=== PATIENT | male | born 1960 | race Caucasian/White ===

== ENCOUNTER 2016-10-20 20:42 | Emergency (ER) | payer BC ==
[~2016-10-20] VITALS: Ht 182.9 cm; Wt 93.0 kg
[2016-10-20 20:49] VITALS: BP 153/101
[2016-10-20] MEDS ORDERED: DIPHTH,PERTUSS(ACELL),TET TOX 0.5 ML DISP.SYRIN. VAX IM ONE (21:30)
[2016-10-20] MEDS ORDERED: LIDOCAINE 1% / SOD BICARB 8.4% 20 ML VIAL. IJ ONE (21:30)
--- NOTE | 2016-10-20 21:34 | PHYS DOC ---
Past Medical History Past Medical History: High Cholesterol, Hypertension Past Surgical History: No Surgical History Alcohol Use: Occasionally Drug Use: None Adult General Chief Complaint Chief Complaint: LACERATION/AVULSION HPI HPI Patient is a 56 year old male who presents emergency Department with a complaint of a laceration to his right hand that occurred within the hour prior to arrival. Patient states he was reaching underneath a cabinet and grabbed a tile that he did not know was broken/cracked. Patient does not remember exactly when he received his last tetanus shot. He states it was within the past 10 years but not sure whether it had been in the past 5 years. He denies any additional injuries or concerns at this time. Of incidental note, patient is to drinking alcohol prior to coming in. Review of Systems Review of Systems Constitutional: Denies fever or chills [] Eyes: Denies change in visual acuity, redness, or eye pain [] HENT: Denies nasal congestion or sore throat [] Respiratory: Denies cough or shortness of breath [] Cardiovascular: No additional information not addressed in HPI [] GI: Denies abdominal pain, nausea, vomiting, bloody stools or diarrhea [] : Denies dysuria or hematuria [] Musculoskeletal: Denies back pain or joint pain [] Integument: Denies rash or skin lesions [] Neurologic: Denies headache, focal weakness or sensory changes [] Endocrine: Denies polyuria or polydipsia [] Current Medications Current Medications Current Medications Medications (Trade) Dose Ordered Sig/Day Start Time Stop Time Status Last Admin Dose Admin Diphtheria/ Tetanus/Acell Pertussis (Boostrix) 0.5 ml ONCE ONCE 10/20/16 21:30 10/20/16 21:31 DC Lidocaine/Sodium Bicarbonate (Buffered Lidocaine 1%) 20 ml 1X ONCE 10/20/16 21:30 10/20/16 21:31 DC 10/20/16 21:30 20 ML Allergies Allergies Allergies Coded Allergies Type Severity Reaction Last Updated Verified No Known Drug Allergies 10/20/16 No Physical Exam Physical Exam Constitutional: Well developed, well nourished, no acute distress, non-toxic appearance. [] HENT: Normocephalic, atraumatic, bilateral external ears normal, oropharynx moist, no oral exudates, nose normal. [] Eyes: PERRLA, EOMI, conjunctiva normal, no discharge. [] Neck: Normal range of motion, no tenderness, supple, no stridor. [] Cardiovascular:Heart rate regular rhythm, no murmur [] Lungs & Thorax: Bilateral breath sounds clear to auscultation [] Abdomen: Bowel sounds normal, soft, no tenderness, no masses, no pulsatile masses. [] Skin: Warm, dry, no erythema, no rash. [] Back: No tenderness, no CVA tenderness. [] Extremities: Approximate 3.5 cm laceration that extends into the subcutaneous tissue in the right thenar region. This does not extend deep into the tendon structures of the palm. Patient is able to flex and extend all 5 fingers at the MCP J, PIPJ and DIPJ. Fingers are neurovascularly intact with capillary refill less than 2 seconds. Neurologic: Alert and oriented X 3, normal motor function, normal sensory function, no focal deficits noted. [] Psychologic: Affect normal, judgement normal, mood normal. [] Current Patient Data Vital Signs Vital Signs Date Time Temp Pulse Resp B/P Pulse Ox O2 Delivery O2 Flow Rate FiO2 10/20/16 20:49 97.6 81 20 96 Room Air 97.6 EKG EKG [] Radiology/Procedures Radiology/Procedures Procedure note: 3.5 similar laceration to the thenar region of patient's right hand was anesthetized with buffered 1% lidocaine. Wound was explored for foreign bodies. No foreign bodies were found. Wound was cleansed with Betadine solution and rinsed with copious amounts saline. Wound margins were approximated utilizing 4-O nylon in a simple interrupted fashion of a single- layer closure for total of 7 stitches. Patient tolerated the procedure well. Patient declined tetanus shot. Course & Med Decision Making Course & Med Decision Making Patient's been somewhat noncompliant with the nurses and requested that he not drink any water so they can check his temperature. He is also voiced some dissatisfaction having to wait as there were 2 procedures performed before him as well. Patient takes a somewhat argumentative approach when dealing with the staff, but keeps it in a pleasant demeanor. Dragon Disclaimer Dragon Disclaimer This electronic medical record was generated, in whole or in part, using a voice recognition dictation system. Departure Departure Impression: Primary Impression: Laceration Disposition: 01 HOME, SELF-CARE Condition: IMPROVED Referrals: RAJ GALICIA (PCP) Patient Instructions: Diphtheria Toxoid; Tetanus Toxoid Adsorbed, DT, Td, Laceration Care, Adult, [id number] Additional Instructions: 1. Stitches need to be removed in 10 days. 2. Review the discharge instructions for self-care and reasons to return the emergency department. 3. Contact your primary care doctor's office in the morning to schedule follow- up appointment for wound check and stitch removal. ERON DOVE Oct 20, 2016 21:34
== END 2016-10-20 22:05 | disposition home or self-care (01) ==
LOC: ER 20:42
DX: S61.411A Laceration without foreign body of right hand, initial encounter (principal); E78.00 Pure hypercholesterolemia, unspecified; I10 Essential (primary) hypertension; W45.8XXA Other foreign body or object entering through skin, initial encounter; Y93.89 Activity, other specified; Y92.89 Other specified places as the place of occurrence of the external cause; Y99.8 Other external cause status
CPT/HCPCS: 12002; 99283-25